=== PATIENT | male | born 1935 | race Caucasian/White ===

== ENCOUNTER 2022-11-30 11:16 | Emergency (ER) | payer MEDICARE, BC | END 2022-11-30 12:40 | disposition home or self-care (01) | LOC: VM.ED 11:16 | DX: I20.9 Angina pectoris, unspecified (principal); Z88.5 Allergy status to narcotic agent; Z79.899 Other long term (current) drug therapy | CPT/HCPCS: 36415; 84484; 93005; 93010; 99284; 99285 ==